=== PATIENT | male | born 1985 | race Caucasian/White ===

== ENCOUNTER 2024-09-28 08:41 | Outpatient (CLI) | payer OTHER, SELFPAY ==
--- NOTE | ~2024-09-28 | US_ITS ---
EXAM: Focused ultrasound examination of the soft tissues of the right groin HISTORY: R19.09 - Other intra-abdominal and pelvic swelling, mass ... TECHNIQUE: Sonographic evaluation of the soft tissues of the right groin were performed assessing gra yscale appearance and color Doppler flow. COMPARISON: None. FINDINGS: Right inguinal hernia is appreciated. Sonographic evaluation of the soft tissues of the remainder of the right groin demonstrate benign fib rofatty and fibromuscular elements without a cystic or solid lesion of concern. IMPRESSION: Right inguinal hernia. Reviewed, dictated and finalized at location A. 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
== END 2024-09-28 08:42 | disposition home or self-care (01) ==
PROVIDERS: PCP Surgery; Visit Provider Family Medicine
DX: K40.90 Unilateral inguinal hernia, without obstruction or gangrene, not specified as recurrent (principal); R19.09 Other intra-abdominal and pelvic swelling, mass and lump
CPT/HCPCS: 76882